=== PATIENT | female | born 1975 | race Caucasian/White ===

== ENCOUNTER 2019-11-06 02:25 | Emergency (ER) | payer BC ==
[2019-11-06] MEDS ORDERED: ONDANSETRON HCL INJ/PF 4 MG/2 ML SDV IV ONE (02:45)
[2019-11-06] MEDS ORDERED: MORPHINE SULFATE 10 MG/ML INJ IV ONE (02:45)
--- NOTE | 2019-11-06 02:51 | ER Document Report ---
ED General - General Chief Complaint: Chest Pain Stated Complaint: STOMACH PAIN / CHEST TIGHTNESS Time Seen by Provider: 11/06/19 02:34 - HPI Notes: Patient is a 44-year-old female who presents emergency department for evaluation of abdominal and chest pain. Patient states she came home from work, had a glass of wine, had a normal evening. She went to sleep. She is woken suddenly by sharp and stabbing pain in her epigastrium, which radiates into "my chest and my intestines." She states that sometimes it feels like it takes her breath away. It was very severe at first, now comes and goes in waves, but never really leaves entirely. No fevers or chills. No nausea or vomiting. She denies any other associated symptoms. She states she is never had any symptoms like this in the past. She states she had a bowel movement yesterday, states it was slightly loose, and dark. She attributed this to eating black olives. - Related Data Allergies/Adverse Reactions: hydromorphone [From Dilaudid] Adverse Reaction (Severe, Verified 11/06/19 02:47) Hallucinations nifedipine [From Procardia] Adverse Reaction (Mild, Verified 11/06/19 02:47) Migraine Past Medical History - General Information source: Patient - Social History Smoking Status: Never Smoker Family History: CAD Psychiatric Medical History: Reports: Hx Attention Deficit Hyperactivity Disorder Past Surgical History: Reports: Hx Gastric Bypass Surgery - Gastric sleeve Review of Systems - Review of Systems Cardiovascular: See HPI Gastrointestinal: See HPI -: Yes All other systems reviewed and negative Physical Exam - Vital signs Vitals: Resp Pulse Ox 17 99 11/06/19 02:32 11/06/19 02:32 - Notes Notes: Is a pleasant 44-year-old female who appears her stated age in a mild amount of distress. She is clearly uncomfortable. Vital signs reviewed, please refer to chart. Head is normocephalic, atraumatic. Pupils equal round, reactive to light. Neck is supple without meningismus. Heart is regular rate and rhythm. Lungs are clear to auscultation bilaterally. Abdomen is soft, moderately tender in the epigastrium without rebound or guarding, normoactive bowel sounds throughout. Extremities without cyanosis, clubbing. Posterior calves are nontender. She has large ecchymosis on her left anterior scott with expected tenderness. Peripheral pulses are equal. Skin is warm and dry. Patient is awake, alert, neurological exam is nonfocal. Course - Re-evaluation Re-evalutation: 11/06/19 02:53 Patient presents to the emergency department for evaluation. She had EKG and laboratory investigations ordered. Morphine and Zofran given for her symptoms. Currently she is stable. Her pain seems more abdominal based at this time. Awaiting laboratory investigations, we will continue to monitor. 11/06/19 04:34 Patient's laboratory investigations are entirely unremarkable. Awaiting second troponin. Patient had some relief after the morphine and GI cocktail. She stated her pain is starting to come back, so decision was made to proceed with Pepcid and Bentyl. We talked about the differential in regards to her pain. Certainly it seems unlikely to be cardiac, given their onset at rest, focus more in the epigastrium, but I did explain to the patient that she has risk factors, and I strongly advised her to follow-up with her primary care provider, perhaps seek out referral to cardiology/stress test. She was amenable to this plan. Otherwise, we talked about gastritis, gallbladder issues, biliary colic, other issues that may be causing her symptoms. I encouraged a bland diet. She states she has not seen a GI doctor since her gastric sleeve procedure, will seek out gastroenterology. We do have gastroenterology on-call, will place referral. 11/06/19 05:53 Repeat troponin is negative, patient is to follow-up with primary care and gastroenterology. Return to the ER with worsening or new concerning symptoms of any sort. - Vital Signs Vital signs: Temp Pulse Resp BP Pulse Ox 12 153/65 H 94 11/06/19 03:31 11/06/19 03:31 11/06/19 03:31 - Laboratory Result Diagrams: 11/06/19 02:38 11/06/19 02:38 Laboratory results interpreted by me: 11/06/19 02:38 Chloride 110 H - Diagnostic Test Radiology reviewed: Reports reviewed Radiology results interpreted by me: 11/06/19 04:36 Chest X-Ray 11/06/19 02:45 IMPRESSION: No acute cardiopulmonary findings. - EKG Interpretation by Me Additional EKG results interpreted by me: 11/06/19 04:36 Sinus bradycardia with a rate of 52 bpm. Normal axis intervals. No acute ST changes concerning for ischemia or infarction. No old studies available for comparison. Discharge - Discharge Clinical Impression: Epigastric pain Chest pain Qualifiers: Chest pain type: unspecified Qualified Code(s): R07.9 - Chest pain, unspecified Condition: Stable Disposition: HOME, SELF-CARE Instructions: Abdominal Pain ([facility]), Chest Pain of Unclear Cause ([facility]) Additional Instructions: No clear cause was found for your pain today. There is no evidence of significant cardiac injury. Your EKG showed no signs of decreased blood flow. You should consider follow-up with gastroenterology, especially given your history of gastric sleeve. You have been given referral to our on-call angle furnaceman, listed below. [place] diet. Follow-up with primary care this week. If you develop worsening or new concerning symptoms of any sort, please return immediately to the emergency department for evaluation. Referrals: DONTE RUSSELL MD [ACTIVE STAFF] - Follow up as needed
[2019-11-06 02:59] LABS: ABSOLUTE EOSINOPHILS # (AUTO) 0.3 10^3/uL (0.0-0.6); ABSOLUTE LYMPHOCYTES (AUTO) 3.4 10^3/uL (0.5-4.7); ABSOLUTE MONOCYTES (AUTO) 0.5 10^3/uL (0.1-1.4); ABSOLUTE NEUT (AUTO) 3.4 10^3/uL (1.7-8.2); BASOPHILS % (AUTO) 0.6 % (0-2); EOSINOPHILS % (AUTO) 3.9 % (0-6); HEMATOCRIT 39.2 % (36.0-47.0); MEAN CORPUSCULAR HEMOGLOBIN 32.6 pg (27.0-33.4); MEAN CORPUSCULAR HGB CONC 35.7 g/dL (32.0-36.0); MEAN CORPUSCULAR VOLUME 92 fl (80-97); PLATELET COUNT 258 10^3/uL (150-450); RED BLOOD COUNT 4.29 10^6/uL (3.72-5.28); RED CELL DISTRIBUTION WIDTH 13.8 % (11.5-14.0); SEGMENTED NEUTROPHILS % (AUTO) 44.5 % (42-78); TOTAL CELLS COUNTED % (AUTO) 100 %; WHITE BLOOD COUNT 7.7 10^3/uL (4.0-10.5)
[2019-11-06 03:10] LABS: ALBUMIN 3.8 g/dL (3.5-5.0); ALKALINE PHOSPHATASE 78 U/L (38-126); ANION GAP 5 (5-19); ASPARTATE AMINO TRANSFERASE 32 U/L (14-36); BILIRUBIN,TOTAL 0.3 mg/dL (0.2-1.3); BLOOD UREA NITROGEN 19 mg/dL (7-20); CALCIUM 9.3 mg/dL (8.4-10.2); CARBON DIOXIDE 26 mmol/L (22-30); CHLORIDE 110 mmol/L (98-107); CREATINE KINASE 30 U/L (30-135); GLUCOSE 92 mg/dL (75-110); POTASSIUM 4.1 mmol/L (3.6-5.0); TOTAL PROTEIN 6.4 g/dL (6.3-8.2)
[2019-11-06 03:32] LABS: TROPONIN I < 0.012 ng/mL
[2019-11-06] MEDS ORDERED: LIDOCAINE 2% VISCOUS SOLN 15 ML UDCUP PO ONE (03:39)
[2019-11-06] MEDS ORDERED: MAG HYDROX/AL HYDROX/SIMETH SUSP 30 ML UDCUP PO ONE (03:39)
--- NOTE | 2019-11-06 03:59 | RADIOLOGY REPORT (SQ) ---
EXAM DESCRIPTION: XR CHEST 2 VIEWS COMPLETED DATE/TME: 11/06/2019 02:45 CLINICAL HISTORY: 44 years Female, chest pain COMPARISON: None. NUMBER OF VIEWS/TECHNIQUE: 2, Frontal, Lateral FINDINGS: Adequate lung volume, clear parenchyma, normal cardiac silhouette, and intact bony thorax. IMPRESSION: No acute cardiopulmonary findings.
[2019-11-06] MEDS ORDERED: FAMOTIDINE INJ/PF 20 MG/2 ML SDV IV ONE (04:33)
[2019-11-06] MEDS ORDERED: DICYCLOMINE HCL INJ 20 MG/2 ML AMPULE IM ONE (04:33)
[2019-11-06 06:12] VITALS: BP 152/76
--- NOTE | 2019-11-06 07:23 | EKG REPORT ---
SEVERITY:- NORMAL ECG - SINUS RHYTHM : Confirmed by: Gisela Gomez 06-Nov-2019 07:23:12
== END 2019-11-06 06:13 | disposition home or self-care (01) ==
LOC: ER 02:25
DX: R07.9 Chest pain, unspecified (principal); R10.13 Epigastric pain; R10.9 Unspecified abdominal pain; Z88.8 Allergy status to other drugs, medicaments and biological substances
CPT/HCPCS: 93005; 99284; 96372; 96374; 96375; 36415; 82553; 82550; 83690; 85025; 80053; 84484; 71046; 93010; J0500; J3490; J2270; J2405; S0028